=== PATIENT | female | born 1950 | race Caucasian/White ===

== ENCOUNTER 2025-04-18 13:30 | Outpatient (AMB) | payer MEDICARE, SELFPAY ==
--- OUTSIDE RECORDS SUMMARY | 2025-04-18 14:45 | XMS_ITS | Patient Health Record ---
Author Organization [facility] Address [address] Kip Pe[place]aloza [place] [address] Care Team Providers Care Doorkeeper Name Role Phone Maral Rich MD Primary Care Provider Mai Santacruz Unavailable [phone] Allergies Allergen (clinical drug ingredient) Drug/Non Drug Allergy documented on EMR Reaction Allergy Type Onset Date Status acetaminophen Tylenol puke Drug Allergy Act katty aspirin Aspirin puke Drug Allergy Active codeine Codeine puke Drug Allergy Active Dust Mites Unknown Allergy Active Mold Unknown Allergy Active Reason For Referral No Information Medications Medication SIG (Take, Route, Frequency, Duration) Notes Start Date End Date Status Vitamin D 50 MCG (1999) TAKE 1 TABLET BY MOUTH ONCE DAILY Oral; Duration: 90 Days Active Ibandronate Sodium 150 MG Oral; Duration: 28 Days Active Social History Tobacco Use: Social History Observation Description Date Details (start date - stop date) Former Smoker NA - NA Tobacco Use/Smoking Question Answer Notes Are you a: former smoker Additional Findings: Tobacco Non-User Current no n-smoker Alcohol Screen Question Answer Notes Did you have a drink containing alcohol in the p ast year? Yes Points 0 Interpretation Negative Tobacco use other than smoking: Question Answer Notes Are you an other tobacco user? No Plan Of Treatment No Information Insurance Providers Payer Name Payer Address Payer Phone Subscriber Number Group Number Insured Name Patient Relationship to Insured Coverage Start Date Coverage End Date Medicare National [facility] [address] [place] [address] [id number] Jessica Hicks Self - patient is the insured [employer] [address] [place] [address] [id number] Jessica Hicks Self - patient is the insured Medical (General) History Medical History History ICD Code Arthritis Broken bones Cancer Cataracts Depression Diverticulosis Neuropathy Osteoporosis Poor circulation Measles Mumps Chicken pox Surgical History Surgery Date(Month/Year) Breast Surgery Broken ribs Mouth
== END 2025-04-18 13:59 | disposition home or self-care (01) ==
LOC: HO.HMGAL 13:30
PROVIDERS: Visit Provider Registered Nurse Emergency
DX: J30.89 Other allergic rhinitis (principal)
CPT/HCPCS: 95117; 95165

== ENCOUNTER 2025-05-04 10:32 | Outpatient (AMB) | payer MEDICARE, SELFPAY ==
[2025-05-04 10:58] VITALS: BP 106/60; PULSE 81; TEMP 36.4; O2SAT 98; BMI 23.2
--- NOTE | 2025-05-04 10:58 | MHC.OFFWIV ---
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 - The burn was sustained while working with a toaster, involving contact with hot surfaces, and was not immediately noticed due to water exposure. - The clement are on the hands bilaterally, initially presenting with a blister. - Treatment included salt water and Neosporin application. - The patient is uncertain about her tetanus vaccination status and was advised to confirm it with her primary care provider. - She denies numbness, tingling, redness, discharge, streaking, warmth, blisters, fever, or chills. Physical Exam General: Cooperative, healthy appearing, comfortable, no acute distress and well developed Orientation: Patient oriented x3 Respiratory: Normal respiratory effort and able to speak in complete sentences. Clear to auscultation bilaterally Cardiovascular: Regular rate and rhythm. Normal S1 and S2 Skin: Clement noted on hands and left thumb, some no blisters. No signs of infection. Neuro: Sensation intact. Extremities: Normal to inspection. FROM of the digits noted on the hands bilaterally. Nodules noted to the joints of the hand. Patient was informed and verbally consented to the use of an ambient scribe for clinic note documentation during this visit Review of Systems Const All systems reviewed & are unremarkable except as noted in HPI and below Physical Exam Vital Signs: Last Vital Signs Temp 97.5 F 05/04/25 10:58 Pulse 81 05/04/25 10:58 BP 106/60 05/04/25 10:58 Pulse Ox 98 05/04/25 10:58 Oxygen Delivery Method Room Air 05/04/25 10:58 BMI result Body Mass Index 23.2 Assessment & Plan Assessment & Plan (1) Burn: Code(s): T30.0 - Burn of unspecified body region, unspecified degree Plan Most likely superficial clement from the [facility] plan - Continue applying prescribed antibiotic ointment three times daily to prevent infection. - Monitor for signs of infection such as increased redness, swelling, or pus. - Use gloves when performing activities that may expose the burn to dirt or bacteria. - Verify tetanus vaccination status with primary care provider. - If not up to date, receive a booster shot at a local pharmacy or clinic. Medications: New mupirocin 2% 1 appl topical TID 22 grams 0RF Coding Level of Care Code Est Pt Level 3 (71514) Diagnoses Burn T30.0
--- OUTSIDE RECORDS SUMMARY | 2025-05-04 11:57 | XMS_ITS | Patient Health Record ---
Author Organization [facility] Address [address] [facility] [place] [address] Care Team Providers Care Plugger Man Name Role Phone Maral Rich MD Primary Care Provider Mai Santacruz Unavailable [phone] Allergies Allergen (clinical drug ingredient) Drug/Non Drug [...] Start Date Coverage End Date Medicare National [facility] [address] [place] [address] [id number] Jessica Hicks Self - patient is the insured [employer] [address] [place] [address] [phone] [id number] Jessica Hicks Self - patient is the insured Medical (General) History Medical History History ICD Code Arthritis Broken bones Cancer Cataracts Depression Diverticulosis Neuropathy Osteoporosis Poor circulation Measles Mumps Chicken pox Surgical History Surgery Date(Month/Year) Breast Surgery Broken ribs Mouth
== END 2025-05-04 12:19 | disposition home or self-care (01) ==
PROVIDERS: Visit Provider Physician Assistant Medical
DX: T30.0 Burn of unspecified body region, unspecified degree (principal)

== ENCOUNTER → 2025-05-04 10:32 | Outpatient (BNVA) | payer MEDICARE, SELFPAY | PROVIDERS: Visit Provider Physician Assistant Medical | DX: T23.002A Burn of unspecified degree of left hand, unspecified site, initial encounter (principal); T23.001A Burn of unspecified degree of right hand, unspecified site, initial encounter; X15.1XXA Contact with hot toaster, initial encounter; Y93.9 Activity, unspecified; Y92.9 Unspecified place or not applicable; Y99.9 Unspecified external cause status | CPT/HCPCS: 99212 ==

== ENCOUNTER 2025-06-07 14:05 | Outpatient (AMB) | payer MEDICARE, SELFPAY | END 2025-06-07 14:08 | disposition home or self-care (01) | LOC: HO.HMGAL 14:05 | PROVIDERS: Visit Provider Registered Nurse Emergency | DX: J30.89 Other allergic rhinitis (principal) | CPT/HCPCS: 95117; 95165 ==

== ENCOUNTER 2025-07-05 13:16 | Outpatient (AMB) | payer MEDICARE, SELFPAY ==
--- OUTSIDE RECORDS SUMMARY | 2025-07-05 16:04 | XMS_ITS | Patient Health Record ---
Author Organization [facility] Address [address] [place] [address] Care Team Providers Care Manager Management Name Role Phone Maral Rich MD Primary Care Provider Mai Santacruz Unavailable [phone] Allergies Allergen (clinical drug ingredient) Drug/Non Drug [...] Start Date Coverage End Date Medicare National [facility] [address] [place] [address] [phone] [id number] Jessica Hicks Self - patient is the insured [employer] [address] [place] [address] [id number] Jessica Hicks Self - patient is the insured Medical (General) History Medical History History ICD Code Arthritis Broken bones Cancer Cataracts Depression Diverticulosis Neuropathy Osteoporosis Poor circulation Measles Mumps Chicken pox Surgical History Surgery Date(Month/Year) Breast Surgery Broken ribs Mouth
== END 2025-07-05 13:17 | disposition home or self-care (01) ==
LOC: HO.HMGAL 13:16
PROVIDERS: PCP Internal Medicine; Visit Provider Registered Nurse Emergency
DX: J30.89 Other allergic rhinitis (principal)
CPT/HCPCS: 95117; 95165

== ENCOUNTER 2025-08-02 15:04 | Outpatient (AMB) | payer MEDICARE, SELFPAY ==
--- OUTSIDE RECORDS SUMMARY | 2025-08-02 18:05 | XMS_ITS | Patient Health Record ---
Author Organization [facility] Address [address] [facility] [place] [address] Care Team Providers Care Assessment Nurse Practitioner Name Role Phone Maral Rich MD Primary Care Provider Mai Santacruz Unavailable [phone] Allergies Allergen (clinical drug ingredient) Drug/Non Drug [...] Start Date Coverage End Date Medicare National [facility] [address] [place] [address] [id number] Jessica Hicks Self - patient is the insured [employer] [address] [place] [address] [id number] Jessica Hicks Self - patient is the insured Medical (General) History Medical History History ICD Code Arthritis Broken bones Cancer Cataracts Depression Diverticulosis Neuropathy Osteoporosis Poor circulation Measles Mumps Chicken pox Surgical History Surgery Date(Month/Year) Breast Surgery Broken ribs Mouth
== END 2025-08-02 15:06 | disposition home or self-care (01) ==
LOC: HO.HMGAL 15:04
PROVIDERS: PCP Internal Medicine; Visit Provider Registered Nurse Emergency
DX: J30.89 Other allergic rhinitis (principal)
CPT/HCPCS: 95117; 95165